=== PATIENT | male | born 1965 | race Caucasian/White ===

== ENCOUNTER 2019-04-10 19:50 | Emergency (ER) | payer OTHER ==
[~2019-04-10] VITALS: Ht 172.7 cm; Wt 109.0 kg
[~2019-04-10 19:50] MED LIST: GABA-586 PO; LINA145C PO; MELO15TA23 PO; METF500T16 PO; PHEN37.599 PO; TIZA4TAB2 PO
[2019-04-10] MEDS ORDERED: CYCL-331 PO (21:05)
[2019-04-10] MEDS ORDERED: PRED50TA PO (21:05)
--- NOTE | 2019-04-10 21:06 | PHYS DOC ---
Past History Past Medical History: No Pertinent History Past Surgical History: No Surgical History Smoking: Quit Greater Than 1 Year Alcohol Use: Rarely Drug Use: None Adult General Chief Complaint Chief Complaint: BACK PAIN OR INJURY [facility] 53-year-old male presents with right-sided low back/hip pain. He tells me that the pain started with mid foot pain in the right foot. This pain altered his gait. Today, the patient now has low back/hip pain that radiates down the back of his leg to the foot. He does not have a history of low back injuries, but he does have degenerative disc disease in his neck. He is concerned about sciatic symptoms. He denies fall or trauma. No altered sensation or numbness. He has no other complaints this time. Review of Systems Review of Systems Constitutional: Denies fever or chills [] Eyes: Denies change in visual acuity, redness, or eye pain [] HENT: Denies nasal congestion or sore throat [] Respiratory: Denies cough or shortness of breath [] Cardiovascular: No additional information not addressed in HPI [] GI: Denies abdominal pain, nausea, vomiting, bloody stools or diarrhea [] : Denies dysuria or hematuria [] Musculoskeletal: Right sacroiliac pain[] Integument: Denies rash or skin lesions [] Neurologic: Denies headache, focal weakness or sensory changes [] Endocrine: Denies polyuria or polydipsia [] All other systems were reviewed and found to be within normal limits, except as documented in this note. Allergies Allergies Allergies Coded Allergies Type Severity Reaction Last Updated Verified No Known Drug Allergies 10/25/13 No Physical Exam Physical Exam Constitutional: Well developed, well nourished, no acute distress, non-toxic appearance. [] HENT: Normocephalic, atraumatic, bilateral external ears normal, oropharynx moist, no oral exudates, nose normal. [] Eyes: PERRLA, EOMI, conjunctiva normal, no discharge. [] Neck: Normal range of motion, no tenderness, supple, no stridor. [] Cardiovascular:Heart rate regular rhythm, no murmur [] Lungs & Thorax: Bilateral breath sounds clear to auscultation [] Abdomen: Bowel sounds normal, soft, no tenderness, no masses, no pulsatile masses. [] Skin: Warm, dry, no erythema, no rash. [] Back: Right sacroiliac tenderness with surrounding muscle spasm[] Extremities: No tenderness, no cyanosis, no clubbing, ROM intact, no edema. [] Neurologic: Alert and oriented X 3, normal motor function, normal sensory function, no focal deficits noted. [] Psychologic: Affect normal, judgement normal, mood normal. [] EKG EKG [] Radiology/Procedures Radiology/Procedures [] Course & Med Decision Making Course & Med Decision Making Pertinent Labs and Imaging studies reviewed. (See chart for details) Patient appears to have acute sacroiliitis. I will treat him with prednisone and Flexeril. We will give the first dose in the emergency room. I will discharge him with a prescription for both. He is stable for discharge at this time. [] Dragon Disclaimer Dragon Disclaimer This electronic medical record was generated, in whole or in part, using a voice recognition dictation system. Departure Departure: Impression: Primary Impression: Sacroiliac joint dysfunction of right side Disposition: HOME, SELF-CARE Condition: STABLE Referrals: CARLO LANDON (PCP) Patient Instructions: Sacroiliac Joint Dysfunction Scripts Prednisone (PREDNISONE) 50 Mg Tablet 1 TAB PO DAILY for sacroiliitis, #5 TAB Prov: BETTY EVANGELISTA DO 04/10/19 Cyclobenzaprine Hcl (CYCLOBENZAPRINE HCL) 10 Mg Tablet 1 TAB PO TID PRN for MUSCLE SPASMS, #30 TAB Prov: BETTY EVANGELISTA DO 04/10/19 BETTY EVANGELISTA DO Apr 10, 2019 21:06
[2019-04-10 21:15] VITALS: BP 128/82
[2019-04-10] MEDS ORDERED: predniSONE 20 MG TABLET PO ONE (21:30)
[2019-04-10] MEDS ORDERED: CYCLOBENZAPRINE 10 MG TABLET. PO ONE (21:30)
== END 2019-04-10 21:30 | disposition home or self-care (01) ==
LOC: ER 19:50
DX: M53.3 Sacrococcygeal disorders, not elsewhere classified (principal); Z87.891 Personal history of nicotine dependence
CPT/HCPCS: 99284; J7512